=== PATIENT | male | born 1980 | race Hispanic/Latino ===

== ENCOUNTER 2022-06-21 07:00 | Day surgery (SDC) | payer MEDICARE ==
[2022-06-20 11:29] LABS: BASOPHILS % (AUTO) 0.6 % (0.0-5.0); EOSINOPHILS % (AUTO) 2.8 % (0.0-8.0); HEMATOCRIT 39.7 % (42-54); LYMPHOCYTES % (AUTO) 19.4 % (21.0-51.0); MEAN CORPUSCULAR HEMOGLOBIN 31.5 pg (27.0-33.0); MEAN CORPUSCULAR VOLUME 95.4 fL (79-99); MONOCYTES % (AUTO) 8.1 % (3.0-13.0); NEUTROPHILS % (AUTO) 68.5 % (40.0-77.0); PLATELET COUNT (AUTO) 261 K/uL (130-400); RED BLOOD CELL COUNT(AUTO) 4.16 MIL/uL (4.50-6.20); RED CELL DISTRIBUTION WIDTH 15.3 % (11.0-15.5); WHITE BLOOD COUNT (AUTO) 7.2 K/uL (4.8-10.8)
[2022-06-20 11:48] LABS: ALBUMIN 4.2 g/dL (3.5-5.0); CREATININE 6.3 mg/dL (0.5-1.5); POTASSIUM 4.5 mmol/L (3.5-5.1); TOTAL PROTEIN, SERUM 9.9 g/dL (6.0-8.3)
[2022-06-20 12:09] LABS: INR 0.93 (0.85-1.15); PROTHROMBIN TIME 9.5 SEC (9.6-11.6)
[2022-06-20 12:10] LABS: PARTIAL THROMBOPLASTIN TIME 26.9 SEC (26.3-35.5)
[2022-06-20 12:17] VITALS: BP 149/77
[2022-06-21] VITALS (16 sets, daily range): BP systolic 110–167; BP diastolic 57–93
[~2022-06-21] VITALS: Ht 175.3 cm; Wt 116.8 kg
[~2022-06-21 07:00] MED LIST: 0.9% NACL 500ML IV.SOLN 500 ML IV ONE; ATOR10 PO; CEFAZOLIN SODIUM 1 GM VIAL IVP SCH; GLIP5TAB11 PO; LANTHANUM CARBONATE PO; METO50TA18 PO; NIFE-39 PO; SITA25TA5 PO
[2022-06-21] MEDS ORDERED: BUPIVACAINE/PF 0.25% 30ML VIAL IJ ONE (08:08)
[2022-06-21] MEDS ORDERED: LIDOCAINE HCL MPF 1% 5ML VIAL ONE (08:34)
[2022-06-21] MEDS ORDERED: SUCCINYLCHOLINE 200MG/10ML SYR ONE (08:34)
[2022-06-21] MEDS ORDERED: MIDAZOLAM HCL 1 MG/ML 2ML VIAL ONE (08:34)
[2022-06-21] MEDS ORDERED: FENTANYL CITRATE PF 50 MCG/1 ML 2ML VIAL ONE ×2 (08:34→09:59)
[2022-06-21] MEDS ORDERED: PROPOFOL 10 MG/ML 20ML VIAL IV ONE (08:34)
[2022-06-21] MEDS ORDERED: ROCURONIUM 10MG/1ML SYR 10 MG/ML ML ONE ×2 (08:34→09:15)
[2022-06-21] MEDS ORDERED: CEFAZOLIN SODIUM 2 GM VIAL IV ONE (08:50)
[2022-06-21] MEDS ORDERED: BUPIVACAINE/EPI/PF 0.25% 30ML VIAL IJ ONE (09:15)
[2022-06-21] MEDS ORDERED: NEOSTIGMINE 5MG/5ML SYR IV ONE (09:41)
[2022-06-21] MEDS ORDERED: GLYCOPYRROLATE 1 MG/5 ML SYRINGE ONE (09:41)
[2022-06-21] MEDS ORDERED: SUGAMMADEX SODIUM 200 MG/2 ML VIAL IV ONE (09:48)
[2022-06-21] MEDS ORDERED: SIME80TA12 PO (11:11)
[2022-06-21] MEDS ORDERED: TRAM50TA4 PO (11:12)
== END 2022-06-21 11:30 | disposition home or self-care (01) ==
LOC: DAH 07:00
PROVIDERS: ATTEND Student in an Organized Health Care Education/Training Program
DX: E11.22 Type 2 diabetes mellitus with diabetic chronic kidney disease (principal); I12.0 Hypertensive chronic kidney disease with stage 5 chronic kidney disease or end stage renal disease; N18.6 End stage renal disease; E66.9 Obesity, unspecified; E78.00 Pure hypercholesterolemia, unspecified; Z99.2 Dependence on renal dialysis; Z79.01 Long term (current) use of anticoagulants; Z79.899 Other long term (current) drug therapy; Z90.49 Acquired absence of other specified parts of digestive tract; Z98.890 Other specified postprocedural states; Z82.49 Family history of ischemic heart disease and other diseases of the circulatory system; Z83.3 Family history of diabetes mellitus; Z68.39 Body mass index [BMI] 39.0-39.9, adult
CPT/HCPCS: 80053; 85025; 85610; 85730; 87426; 36415 ×2; 49324; 84132; 82948 ×2; A6260 ×2; A4663; J7030; J0690 ×2; J7040; J3010 ×2; J0330; J3490 ×4; J2710; J2250; J2704; C1769 ×3; C1752; A4930; A4215; A4223; A4222; A4221; A4600

== ENCOUNTER → 2023-01-16 | Outpatient (CLI) | payer OTHER, MEDICARE ==
[~2023-01-16] MED LIST changes: -0.9% NACL 500ML IV.SOLN 500 ML IV ONE; -CEFAZOLIN SODIUM 1 GM VIAL IVP SCH; +SIME80TA12 PO; +TRAM50TA4 PO
== END | disposition home or self-care (01) ==
LOC: RAH 08:59
PROVIDERS: ATTEND Student in an Organized Health Care Education/Training Program
DX: M75.102 Unspecified rotator cuff tear or rupture of left shoulder, not specified as traumatic (principal)
CPT/HCPCS: 73221

== ENCOUNTER 2023-09-26 07:05 | Day surgery (SDC) | payer OTHER, MEDICARE ==
[2023-09-24 11:10] LABS: BASOPHILS # (AUTO) 0.09 K/uL (0.00-0.20); BASOPHILS % (AUTO) 0.8 % (0.0-5.0); EOSINOPHILS # (AUTO) 0.51 K/uL (0.00-0.70); EOSINOPHILS % (AUTO) 4.5 % (0.0-8.0); HEMATOCRIT 38.9 % (42-54); IMMATURE GRANULOCYTE ABSOLUTE 0.06 K/uL (0-1); LYMPHOCYTES # (AUTO) 1.2 K/uL (1.0-4.8); LYMPHOCYTES % (AUTO) 10.7 % (21.0-51.0); MEAN CORPUSCULAR HGB CONC 30.3 g/dL (32.0-36.0); MEAN CORPUSCULAR VOLUME 95.6 fL (79-99); MONOCYTES # (AUTO) 0.9 K/uL (0.1-1.0); MONOCYTES % (AUTO) 7.5 % (3.0-13.0); NEUTROPHILS # (AUTO) 8.6 K/uL (1.8-7.7); PLATELET COUNT (AUTO) 331 K/uL (130-400); RED BLOOD CELL COUNT(AUTO) 4.07 MIL/uL (4.50-6.20); RED CELL DISTRIBUTION WIDTH 16.8 % (11.0-15.5); WHITE BLOOD COUNT (AUTO) 11.3 K/uL (4.8-10.8)
[2023-09-24 11:14] LABS: POTASSIUM 4.4 mmol/L (3.5-5.1)
[2023-09-24 11:19] LABS: CREATININE 8.2 mg/dL (0.5-1.5)
[2023-09-24 11:22] LABS: INR < 0.93 (0.85-1.15); PROTHROMBIN TIME 10.7 SEC (9.6-11.6)
[2023-09-24 11:24] LABS: PARTIAL THROMBOPLASTIN TIME 28.5 SEC (26.3-35.5)
[2023-09-24 11:45] VITALS: BP 188/91; PULSE 82; RESP 14
[~2023-09-26] VITALS: Ht 175.3 cm; Wt 112.5 kg
[2023-09-26] VITALS (12 sets, daily range): BP systolic 135–172; BP diastolic 67–89; PULSE 67–85; RESP 15–20
[~2023-09-26 07:05] MED LIST changes: -ATOR10 PO; +CARV12.511 PO; +FOLI0.8T22 PO; -GLIP5TAB11 PO; +GLIP5TAB15 PO; -LANTHANUM CARBONATE PO; -METO50TA18 PO; +SEVE800T7 PO; -SIME80TA12 PO; -TRAM50TA4 PO; +auryxia PO
[2023-09-26] MEDS ORDERED: CEFAZOLIN SODIUM 2 GM VIAL ONE (07:19)
[2023-09-26] MEDS ORDERED: 0.9%NACL 1000ML 0 ML IV ONE (07:19)
[2023-09-26] MEDS ORDERED: BUPIVACAINE/PF 0.25% 30ML VIAL IJ ONE (07:35)
[2023-09-26] MEDS ORDERED: 0.9% NACL 500ML IV.SOLN 500 ML IV ONE (07:54)
[2023-09-26] MEDS ORDERED: CEFAZOLIN SODIUM 1 GM VIAL ONE (07:54)
[2023-09-26] MEDS ORDERED: NIFE60TA5 PO (08:44)
[2023-09-26] MEDS ORDERED: FAMOTIDINE 20MG VIAL IV ONE (09:26)
[2023-09-26] MEDS ORDERED: MIDAZOLAM HCL 1 MG/ML 2ML VIAL ONE (11:20)
[2023-09-26] MEDS ORDERED: PROPOFOL 10 MG/ML 20ML VIAL IV ONE (11:25)
[2023-09-26] MEDS ORDERED: LIDOCAINE PF 100MG/5ML (2%) SYRINGE 5ML ONE (11:26)
[2023-09-26] MEDS ORDERED: FENTANYL CITRATE PF 50 MCG/1 ML 2ML VIAL ONE (11:28)
[2023-09-26] MEDS ORDERED: KETAMINE 50MG/ML SYRINGE 50 MG/ML DISP.SYRIN ONE (11:40)
== END 2023-09-26 13:25 | disposition home or self-care (01) ==
LOC: DAH 07:05
PROVIDERS: ATTEND Student in an Organized Health Care Education/Training Program
DX: T85.611A Breakdown (mechanical) of intraperitoneal dialysis catheter, initial encounter (principal); I12.0 Hypertensive chronic kidney disease with stage 5 chronic kidney disease or end stage renal disease; E11.22 Type 2 diabetes mellitus with diabetic chronic kidney disease; N18.6 End stage renal disease; E78.00 Pure hypercholesterolemia, unspecified; Z90.49 Acquired absence of other specified parts of digestive tract; Z98.890 Other specified postprocedural states; Z99.2 Dependence on renal dialysis; Y82.8 Other medical devices associated with adverse incidents
CPT/HCPCS: 80048; 85025; 85610; 85730; 36415 ×2; 49422; 84132; 82948 ×2; A6260; A4600; A4663; A4606; J7040; J3490 ×2; J3010; J0690 ×2; J0665; J2001; J2250; J2704; G0168; A4649; A4930; A4215; A4223; A4222; A4221; J1644; J7030

== ENCOUNTER → 2023-11-13 | Outpatient (CLI) | payer OTHER, MEDICARE ==
[~2023-11-13] MED LIST changes: -NIFE-39 PO; +NIFE60TA5 PO
== END | disposition home or self-care (01) ==
LOC: LAB 09:11
PROVIDERS: ATTEND Family Medicine
DX: M17.11 Unilateral primary osteoarthritis, right knee (principal); M19.041 Primary osteoarthritis, right hand; R29.6 Repeated falls; M25.541 Pain in joints of right hand; M25.561 Pain in right knee
CPT/HCPCS: 73130; 73562

== ENCOUNTER 2024-04-21 01:58 | Emergency (ER) | payer OTHER, MEDICARE ==
[~2024-04-21] VITALS: Ht 175.3 cm; Wt 113.6 kg
[2024-04-21 02:20] LABS: BASOPHILS # (AUTO) 0.06 K/uL (0.00-0.20); BASOPHILS % (AUTO) 0.6 % (0.0-5.0); EOSINOPHILS # (AUTO) 0.28 K/uL (0.00-0.70); EOSINOPHILS % (AUTO) 2.7 % (0.0-8.0); HEMATOCRIT 42.7 % (42-54); IMMATURE GRANULOCYTE ABSOLUTE 0.04 K/uL (0-1); LYMPHOCYTES # (AUTO) 1.3 K/uL (1.0-4.8); LYMPHOCYTES % (AUTO) 12.5 % (21.0-51.0); MEAN CORPUSCULAR HEMOGLOBIN 31.8 pg (27.0-33.0); MEAN CORPUSCULAR VOLUME 96.4 fL (79-99); MONOCYTES # (AUTO) 0.8 K/uL (0.1-1.0); MONOCYTES % (AUTO) 7.6 % (3.0-13.0); NEUTROPHILS # (AUTO) 8.1 K/uL (1.8-7.7); NEUTROPHILS % (AUTO) 76.2 % (40.0-77.0); PLATELET COUNT (AUTO) 236 K/uL (130-400); RED BLOOD CELL COUNT(AUTO) 4.43 MIL/uL (4.50-6.20); RED CELL DISTRIBUTION WIDTH 16.6 % (11.0-15.5); WHITE BLOOD COUNT (AUTO) 10.6 K/uL (4.8-10.8)
[2024-04-21] MEDS: NIFEDIPINE 10 MG CAP ONE (02:23)
[2024-04-21 02:37] LABS: BILIRUBIN,TOTAL 0.5 mg/dL (0.2-1.0); POTASSIUM 5.5 mmol/L (3.5-5.1); TOTAL PROTEIN, SERUM 8.7 g/dL (6.0-8.3)
[2024-04-21 02:46] LABS: CREATININE 8.8 mg/dL (0.5-1.3)
[2024-04-21 02:54] LABS: B-TYPE NATRIURETIC PEPTIDE 787 pg/mL (0-100)
[2024-04-21] MEDS: ALBUTEROL 0.083% 2.5 MG/3 ML INH IH SCH (03:30)
[2024-04-21 03:32] VITALS: PULSE 76; RESP 17
[2024-04-21] MEDS: NA ZIRCON CYCLOSIL(LOKELMA 10GM) PO ONE (03:46)
[2024-04-21] MEDS: HYDRALAZINE 20MG/ML VIAL ONE (03:57)
[2024-04-21] MEDS: ACETAMINOPHEN 500 MG TABLET PO ONE (03:59)
[2024-04-21] MEDS: HYDRALAZINE 20MG/ML VIAL IV ONE (03:59)
[2024-04-21] MEDS: ACETAMINOPHEN 500 MG TABLET ONE (03:59)
[2024-04-21 05:20] VITALS: BP 172/74; PULSE 81; RESP 16; O2SAT 96
== END 2024-04-21 05:22 | disposition home or self-care (01) ==
LOC: EDH 01:58
DX: I12.0 Hypertensive chronic kidney disease with stage 5 chronic kidney disease or end stage renal disease (principal); E11.22 Type 2 diabetes mellitus with diabetic chronic kidney disease; R51.9 Headache, unspecified; N18.6 End stage renal disease; Z99.2 Dependence on renal dialysis; Z79.899 Other long term (current) drug therapy; Z90.49 Acquired absence of other specified parts of digestive tract
CPT/HCPCS: 99285; 96374; 70450; 71045; 84484; 80053; 83880; 85025; 36415; 93005; 94640; J0360

== ENCOUNTER → 2024-08-02 | Outpatient (CLI) | payer MEDICARE ==
[2024-08-02 14:02] LABS: CREATININE 11.6 mg/dL (0.5-1.3)
== END | disposition home or self-care (01) ==
LOC: LAB 13:13
PROVIDERS: ATTEND Internal Medicine Cardiovascular Disease
DX: I10 Essential (primary) hypertension (principal); E11.59 Type 2 diabetes mellitus with other circulatory complications; E78.2 Mixed hyperlipidemia; R09.89 Other specified symptoms and signs involving the circulatory and respiratory systems; I25.10 Atherosclerotic heart disease of native coronary artery without angina pectoris; Z71.3 Dietary counseling and surveillance; R42 Dizziness and giddiness; I65.23 Occlusion and stenosis of bilateral carotid arteries; Z68.36 Body mass index [BMI] 36.0-36.9, adult
CPT/HCPCS: 36415; 82565; 84520

== ENCOUNTER → 2024-08-05 | Outpatient (CLI) | payer MEDICARE ==
[~2024-08-05] MED LIST changes: +IOHEXOL-350 75 ML VIAL IV ONE
== END | disposition home or self-care (01) ==
LOC: CANPRECLI → RAH 07:48
PROVIDERS: ATTEND Internal Medicine Cardiovascular Disease
DX: I65.23 Occlusion and stenosis of bilateral carotid arteries (principal); M47.812 Spondylosis without myelopathy or radiculopathy, cervical region
CPT/HCPCS: 70498; Q9967